=== PATIENT | male | born 1950 | race Caucasian/White ===

== ENCOUNTER → 2017-06-11 | Outpatient (CLI) | payer OTHER ==
[~2017-06-11] MED LIST: ANTARA130 MG PO; ASPIRIN EC325 M1 PO; ASPIRIN325 PO; BYSTOLIC 5 MG5 M1 PO; FENOFIBRATE130 MG PO; FISH OIL 1,0001 EAC7 PO; INSPRA25 MG PO; NIASPAN ER 101000 M1 PO; QUINAPRIL 20 MG20 MG PO; VASCEPA1 GM PO; VYTORIN 10-101 EACH PO; VYTORIN 10-401 EACH PO; WELCHOL 625 MG625 MG PO
--- NOTE | ~2017-06-11 | 2DMMODE ---
[facility] [address] [place] [address] 2 D/M-MODE ECHOCARDIOGRAM Name: MK FLORES Room #: REG [facility]#: [id number] Admission: 06/11/17 Attend Phys: Magnus Munson Discharge: Date of : 52 Date of Service: 06/11/17 1143 Report #: [id number] THIS REPORT FOR: //name// APPROVED REPORT Study performed: 06/11/2017 10:40:33 EXAM: Comprehensive 2D, Doppler, and color-flow Echocardiogram Patient Location: Out-Patient Status: routine BSA: 2.00 HR: 72 bpm BP: 120/70 mmHg Rhythm: NSR Other Information Study Quality: Adequate Indications Ischemic cardiomyopathy. Hx: CAD, stent Echo Enhancing Agent Indication: Endocardial border delineation Agent(s) / Amount(s) Used: Optison 5 cc 2D Dimensions RVDd: 34.73 mm LVEF(%): 43.68 (>50%) IVSd: 10.94 (7-11mm) LVOT Diam: 20.63 (18-24mm) LVDd: 59.66 mm PWd: 10.64 (7-11mm) Ascending Ao: 34.71 (22-36mm) LVDs: 46.55 (25-40mm) Aortic Root: 33.46 mm Erwin's LVEF: 43.68 % Volumes Left Atrial Volume (Systole) Single Plane 4CH: 41.74 mL Single Plane 2CH: 52.51 mL LA ESV Index: 25.00 mL/m2 Aortic Valve AoV Peak Pedrito.: 1.50 m/s AO Peak Gr.: 9.05 mmHg LVOT Max P.70 mmHg LVOT Max V: 0.96 m/s ALBERTO Vmax: 2.13 cm2 [facility] [address] [place] [address] 2 D/M-MODE ECHOCARDIOGRAM Name: MK FLORES Room #: [facility]#: [id number] Admission: 06/11/17 Attend Phys: Magnus Munson Discharge: Date of : 52 Date of Service: 06/11/17 1143 Report #: [id number] Mitral Valve E/A Ratio: 0.7 MV Decel. Time: 258.90 ms MV E Max Pedrito.: 0.48 m/s MV A Pedrito.: 0.70 m/s MV PHT: 75.08 ms IVRT: 83.04 ms Pulmonary Valve PV Peak Pedrito.: 1.12 m/s PV Peak Gr.: 4.98 mmHg Pulmonary Vein P Vein S: 0.43 m/s P Vein D: 0.34 m/s P Vein S/D Ratio: 1.26 Tricuspid Valve TR Peak Pedrito.: 1.87 m/s RAP Estimate: 5.00 mmHg TR Peak Gr.: 13.98 mmHg PA Pressure: 19.00 mmHg Left Ventricle Left ventricle is dilated. There is normal left ventricular wall thickness. Left ventricular systolic function is moderately decreased. Hypokinesis of distal septum, distal anterior wall, and apex. LVEF 40%. Mild diastolic dysfunction is present (impaired relaxation pattern). Right Ventricle The right ventricle is normal size. The right ventricular systolic function is normal. Device lead is present in the right ventricle. Atria The left atrium size is normal. The right atrium size is normal. Aortic Valve The aortic valve is sclerotic, trileaflet. No aortic regurgitation is present. There is no aortic valvular stenosis. Mitral Valve The mitral valve is normal in structure. No mitral regurgitation. No evidence of mitral valve stenosis. Tricuspid Valve [facility] [address] [place] [address] 2 D/M-MODE ECHOCARDIOGRAM Name: MK FLORES Room #: REG [facility]#: [id number] Admission: 06/11/17 Attend Phys: [email or web address] Discharge: Date of : 52 Date of Service: 06/11/17 1143 Report #: [id number] The tricuspid valve is normal in structure. Trace tricuspid regurgitation. Estimated PAP is 20mmHg. Pulmonic Valve The pulmonary valve is normal in structure. Mild pulmonic regurgitation. Great Vessels The aortic root is normal in size. The ascending aorta is normal in size. IVC is normal in size and collapses >50% with inspiration. Pericardium There is no pericardial effusion. <Conclusion> Left ventricular systolic function is moderately decreased. Hypokinesis of distal septum, distal anterior wall, and apex. LVEF 40%. Mild diastolic dysfunction The aortic valve is sclerotic, trileaflet. No aortic regurgitation or stenosis. The mitral valve is normal in structure. No mitral regurgitation. Device lead is present in the right ventricle. Trace tricuspid regurgitation. Estimated pulmonary artery pressure of 20mmHg. There is no pericardial effusion. <ELECTRONICALLY SIGNED> By: Enrico Zelaya MD, FACC 06/11/17 1143 1143 1143 Enrico Zelaya MD, FACC /INF
== END ==
LOC: CV 10:27
DX: I50.30 Unspecified diastolic (congestive) heart failure (principal); I25.5 Ischemic cardiomyopathy; I25.10 Atherosclerotic heart disease of native coronary artery without angina pectoris; Z95.1 Presence of aortocoronary bypass graft; Z96.89 Presence of other specified functional implants

== ENCOUNTER → 2017-06-13 | Outpatient (CLI) | payer OTHER ==
[~2017-06-13] VITALS: Ht 177.8 cm; Wt 81.6 kg
--- NOTE | ~2017-06-13 | P ---
[facility] [place] [address] PROCEDURE REPORT Name: MK FLORES Room #: REG [facility]#: [id number] Admission: 06/13/17 Attend Phys: Magnus Munson MD Discharge: Date of : 52 Report #: [id number] THIS REPORT FOR: //name// CC: Dmitry Munson PROCEDURE: ICD generator exchange. PREOPERATIVE DIAGNOSIS: Implantable cardioverter-defibrillator at elective replacement interval. POSTOPERATIVE DIAGNOSIS: Implantable cardioverter-defibrillator at elective replacement interval. INDICATIONS: The patient is a 67-year-old with history of ischemic cardiomyopathy, status post ICD implantation for primary prevention of sudden cardiac , whose device is at the elective replacement interval. He is here for generator exchange. ANESTHESIA: The patient underwent MAC anesthesia with no anesthesia related complications. DESCRIPTION OF PROCEDURE: The patient underwent informed consent. We discussed the details of the procedure including the risks, which include but not limited to bleeding, infection, need for possible lead revisions. He understood these risks and is willing to proceed. As such, the patient was brought to the EP laboratory in a fasting and sedated state, prepped and draped in a sterile fashion, received IV antibiotics prior to the initiation of the procedure. Next, I injected lidocaine to the incision site. An incision was made and the pocket was opened. I dissected out the leads and made some room for the newer can. Then, the new can was connected to the leads, tested and found to be functioning normally. The pocket was irrigated with vancomycin. I closed the pocket in 3 layers using 2-0 for the deep layer, 3-0 for the mid layer and 4-0 for the subcuticular layer. Surgical glue was placed to the outer skin layer. The patient awoke neurologically and hemodynamically intact. No complications and no significant bleeding. The explanted device was a [employer] model number C088QPV, serial #[id number]. This was originally implanted on 12/10/2007. The newly implanted generator was a [employer] model #[id number], serial #[id number]. The RV lead was a [employer] model #6947, serial #[id number]. This lead demonstrated R-wave of 11.4 millivolts, pacing impedance of 440 ohms and pacing threshold 1 volt at 0.4 milliseconds. The coil impedance is within normal limits. The device was programmed to VVI 40 mode. The VT zone was set at 180-220 beats per minute with ATP while charging, followed by max output shocks. The VF zone was set at greater than 220 beats per minute with ATP while charging, followed by max [address] [address] PROCEDURE REPORT Name: MK FLORES Room #: REG [facility]#: [id number] Admission: 06/13/17 Attend Phys: Magnus Munson MD Discharge: Date of : 52 Report #: [id number] output shocks. CONCLUSIONS: 1. Successful ICD generator exchange. 2. Satisfactory right ventricular pacing and sensing thresholds. <ELECTRONICALLY SIGNED> By: Magnus Munson MD 06/14/17 1512 0941 1140 Magnus Munson MD /nt
[2017-06-13 07:11] VITALS: BP 138/82
[2017-06-13 07:43] LABS: BASOPHILS 0.3 % (0.0-2.0); EOSINOPHILS 1.8 % (0.0-3.0); HEMATOCRIT 47.4 % (42.0-52.0); HEMOGLOBIN 16.4 gm/dL (14.0-18.0); LYMPHOCYTES 29.1 % (24.0-44.0); MCH 31.1 pg (26.0-34.0); MCHC 34.6 g/dL (28.0-37.0); MCV 89.9 fL (80.0-100.0); MONOCYTES 9.8 % (1.0-8.0); PLATELET COUNT 220 thou/uL (150-400); RBC 5.27 mil/uL (4.50-6.00); RDW 13.6 % (10.5-14.5); WBC 8.5 thou/uL (4.0-11.0)
[2017-06-13 07:53] LABS: CALCIUM 9.5 mg/dL (8.5-10.1); CREATININE 1.1 mg/dL (0.7-1.3); POTASSIUM 4.3 mmol/L (3.5-5.1)
[2017-06-13 07:57] LABS: APTT 27.2 Seconds (24.5-32.8); INR 1.1; PROTIME 10.9 Seconds (9.3-11.4)
[2017-06-13 07:58] LABS: ALBUMIN 3.8 g/dL (3.4-5.0); TOTAL BILIRUBIN 0.3 mg/dL (<0.1-1.0); TOTAL PROTEIN 7.4 g/dL (6.4-8.2)
== END | disposition home or self-care (01) ==
LOC: CATH 06:32
PROVIDERS: Internal Medicine Cardiovascular Disease
DX: Z45.2 Encounter for adjustment and management of vascular access device (principal); I25.5 Ischemic cardiomyopathy; I10 Essential (primary) hypertension; E78.00 Pure hypercholesterolemia, unspecified; Z95.0 Presence of cardiac pacemaker; I21.3 ST elevation (STEMI) myocardial infarction of unspecified site; Z87.891 Personal history of nicotine dependence; Z98.890 Other specified postprocedural states
CPT/HCPCS: 62110; 62900; 70005

== ENCOUNTER → 2020-06-20 | Outpatient (CLI) | payer OTHER | LOC: SJCVC 11:22 | PROVIDERS: ATTEND Internal Medicine Cardiovascular Disease | DX: I25.10 Atherosclerotic heart disease of native coronary artery without angina pectoris (principal); E78.5 Hyperlipidemia, unspecified; I10 Essential (primary) hypertension; E11.9 Type 2 diabetes mellitus without complications; I71.4 Abdominal aortic aneurysm, without rupture; R06.00 Dyspnea, unspecified; I25.5 Ischemic cardiomyopathy; F17.210 Nicotine dependence, cigarettes, uncomplicated; Z95.810 Presence of automatic (implantable) cardiac defibrillator; Z88.8 Allergy status to other drugs, medicaments and biological substances; Z79.82 Long term (current) use of aspirin; Z79.84 Long term (current) use of oral hypoglycemic drugs; Z79.899 Other long term (current) drug therapy; Z82.49 Family history of ischemic heart disease and other diseases of the circulatory system ==

== ENCOUNTER → 2020-07-01 | Outpatient (CLI) | payer OTHER | LOC: SJCVCIMAG 07:26 | PROVIDERS: ATTEND Internal Medicine Cardiovascular Disease | DX: I37.1 Nonrheumatic pulmonary valve insufficiency (principal); R00.0 Tachycardia, unspecified; I49.3 Ventricular premature depolarization; I25.10 Atherosclerotic heart disease of native coronary artery without angina pectoris; I25.5 Ischemic cardiomyopathy; I11.9 Hypertensive heart disease without heart failure; R06.00 Dyspnea, unspecified; R10.9 Unspecified abdominal pain; E11.51 Type 2 diabetes mellitus with diabetic peripheral angiopathy without gangrene; R51.9 Headache, unspecified; I10 Essential (primary) hypertension; E78.00 Pure hypercholesterolemia, unspecified; I73.9 Peripheral vascular disease, unspecified; F17.210 Nicotine dependence, cigarettes, uncomplicated; Z95.810 Presence of automatic (implantable) cardiac defibrillator; Z98.890 Other specified postprocedural states; Z88.8 Allergy status to other drugs, medicaments and biological substances; Z79.82 Long term (current) use of aspirin; Z79.84 Long term (current) use of oral hypoglycemic drugs; Z79.899 Other long term (current) drug therapy; Z82.49 Family history of ischemic heart disease and other diseases of the circulatory system ==

== ENCOUNTER → 2020-12-21 | Outpatient (CLI) | payer OTHER | END | disposition home or self-care (01) | LOC: SJCVC 13:03 | PROVIDERS: ATTEND Internal Medicine Cardiovascular Disease | DX: I25.10 Atherosclerotic heart disease of native coronary artery without angina pectoris (principal); I25.5 Ischemic cardiomyopathy; I10 Essential (primary) hypertension; E78.00 Pure hypercholesterolemia, unspecified; E78.1 Pure hyperglyceridemia; E11.9 Type 2 diabetes mellitus without complications; I71.4 Abdominal aortic aneurysm, without rupture; F17.210 Nicotine dependence, cigarettes, uncomplicated; Z79.82 Long term (current) use of aspirin; Z79.84 Long term (current) use of oral hypoglycemic drugs; Z79.899 Other long term (current) drug therapy; Z91.09 Other allergy status, other than to drugs and biological substances; Z82.49 Family history of ischemic heart disease and other diseases of the circulatory system ==